=== PATIENT | female | born 1995 | race Caucasian/White ===

== ENCOUNTER 2018-06-08 09:22 | Emergency (ER) | payer BC ==
[2018-06-08 10:21] LABS: Urine Blood NEGATIVE (NEG); Urine Glucose NEGATIVE (NEG); Urine Protein NEGATIVE (NEG); Urine Specific Gravity 1.015 (1.005-1.030); Urine pH 7.5 (5.0-7.0)
[2018-06-08 10:29] LABS: Barbiturates NEGATIVE (NEGATIVE); Benzodiazepines NEGATIVE (NEGATIVE); Cocaine NEGATIVE (NEGATIVE); METHAMPHETAM NEGATIVE (NEGATIVE); Methadone NEGATIVE (NEGATIVE); Opiates NEGATIVE (NEGATIVE); Phencyclidine NEGATIVE (NEGATIVE); THC Cannibis NEGATIVE (NEGATIVE)
[2018-06-08 10:34] LABS: Absolute Lymphocytes (CBC) 2.2 K/uL (0.7-4.9); Absolute Monocytes 0.4 K/uL (0.1-1.3); Absolute Neutrophil 2.5 K/uL (1.8-8.0); Basophils % 0.4 % (0-1.3); Eosinophils % 2.1 % (0-4.4); Hematocrit 38.9 % (36.0-45.0); Lymphocytes % 41.7 % (15.3-44.8); MCH 32.8 pg (27.0-35.0); MCV 93.3 fL (80-100); MPV 9.3 fL (7.6-11.3); Monocytes % 8.5 % (3.3-12.3); RBC Red Blood Cell Count 4.17 M/uL (3.86-4.86)
[2018-06-08 10:38] LABS: Protime INR 1.02
[2018-06-08 10:46] LABS: ALT/SGPT 24 U/L (12-78); AST/SGOT 18 U/L (15-37); Alkaline Phosphatase 41 U/L (45-117); BUN Blood Urea Nitrogen 10 mg/dL (7-18); Bicarbonate 29 mmol/L (21-32); Bilirubin Direct 0.1 mg/dL (0-0.2); Bilirubin Total 0.5 mg/dL (0.2-1.0); Glucose Level 91 mg/dL (74-106); Magnesium 2.1 mg/dL (1.8-2.4); NT PRO-BNP 55 pg/mL (<125); Potassium 3.8 mmol/L (3.5-5.1); Protein, Total 7.4 g/dL (6.4-8.2); Sodium Level 140 mmol/L (136-145)
--- NOTE | 2018-06-08 11:49 | RAD REPORT ---
EXAM DESCRIPTION: RAD - Chest Single View - 06/08/2018 9:49 am CLINICAL HISTORY: CHEST PAIN Chest pain. COMPARISON: No comparisons FINDINGS: Portable technique limits examination quality. The lungs are grossly clear. The heart is normal in size. No displaced fractures. IMPRESSION: No acute intrathoracic process suspected.
--- NOTE | 2018-06-08 12:13 | EDPHYS ---
Physician Documentation [facility] Name: Valeria Gaston Age: 23 yrs Sex: Female : 1995 Arrival Date: 06/08/2018 Time: 09:23 Bed 8 Private MD: Buddy Andre ED Physician Seven Chadwick HPI: 06/08 16:37 This 23 yrs old Female presents to ER via Ambulatory with complaints of Chest kdr Pain. 16:37 The patient or guardian reports chest pain that is located primarily in the anterior kdr chest wall, At the inferior costal margin below nipple. The pain does not radiate. Associated signs and symptoms: The patient has no apparent associated signs or symptoms, Pertinent positives: Hard to get a full breath. Began with mild discomfort then she felt a pop and the pain became much worse.. The chest pain is described as sharp, stabbing. Duration: The patient or guardian reports multiple episodes, that are intermittent, that wax and wane, with no pattern. Modifying factors: The symptoms are alleviated by remaining still, Shallow breathing, holding still. the symptoms are aggravated by breathing, cough, deep breath, movement, twisting torso. Severity of pain: At its worst the pain was moderate severe just prior to arrival, in the emergency department the pain has improved moderately. The patient has experienced similar episodes in the past, The has been ongoing for some time but not as bad or persistent as today.. Historical: - Allergies: 09:34 No Known Allergies; ss - Home Meds: 09:34 vyvanse (currently on hold due to CP symptoms per PCP) [Active]; ss 09:35 control [Active]; ss - PMHx: 09:34 ADD/ADHD; ss - PSHx: 09:34 None; ss - Immunization history:: Adult Immunizations up to date. - Social history:: Smoking status: Patient/guardian denies using tobacco. - Ebola Screening: : Patient denies exposure to infectious person Patient denies travel to an Ebola-affected area in the 21 days before illness onset. ROS: 16:37 Constitutional: Negative for fever, chills, and weight loss, Eyes: Negative for injury, kdr pain, redness, and discharge, ENT: Negative for injury, pain, and discharge, Neck: Negative for injury, pain, and swelling, Respiratory: Negative for shortness of breath, cough, wheezing, and pleuritic chest pain, Abdomen/GI: Negative for abdominal pain, nausea, vomiting, diarrhea, and constipation, Back: Negative for injury and pain, : Negative for injury, bleeding, discharge, and swelling, MS/Extremity: Negative for injury and deformity, Skin: Negative for injury, rash, and discoloration, Neuro: Negative for headache, weakness, numbness, tingling, and seizure activity. Psych: Negative for depression, anxiety, suicide ideation, homicidal ideation, and hallucinations, Allergy/Immunology: Negative for hives, rash, and allergies, Endocrine: Negative for neck swelling, polydipsia, polyuria, polyphagia, and marked weight changes, Hematologic/Lymphatic: Negative for swollen nodes, abnormal bleeding, and unusual bruising. 16:37 Cardiovascular: Positive for chest pain, with cough, with movement, of the left anterior inferior chest pain, Negative for edema, orthopnea, palpitations, paroxysmal nocturnal dyspnea. Exam: 16:37 Constitutional: This is a well developed, well nourished patient who is awake, alert, kdr and in no acute distress. Head/Face: Normocephalic, atraumatic. Eyes: Pupils equal round and reactive to light, extra-ocular motions intact. Lids and lashes normal. Conjunctiva and sclera are non-icteric and not injected. Cornea within normal limits. Periorbital areas with no swelling, redness, or edema. Neck: Trachea midline, no thyromegaly or masses palpated, and no cervical lymphadenopathy. Supple, full range of motion without nuchal rigidity, or vertebral point tenderness. No Meningismus. Cardiovascular: Regular rate and rhythm with a normal S1 and S2. No gallops, murmurs, or rubs. Normal PMI, no JVD. No pulse deficits. Respiratory: Lungs have equal breath sounds bilaterally, clear to auscultation and percussion. No rales, rhonchi or wheezes noted. No increased work of breathing, no retractions or nasal flaring. Abdomen/GI: Soft, non-tender, with normal bowel sounds. No distension or tympany. No guarding or rebound. No evidence of tenderness throughout. Back: No spinal tenderness. No costovertebral tenderness. Full range of motion. Skin: Warm, dry with normal turgor. Normal color with no rashes, no lesions, and no evidence of cellulitis. MS/ Extremity: Pulses equal, no cyanosis. Neurovascular intact. Full, normal range of motion. Neuro: Awake and alert, GCS 15, oriented to person, place, time, and situation. Cranial nerves II-XII grossly intact. Motor strength 5/5 in all extremities. Sensory grossly intact. Cerebellar exam normal. Normal gait. Psych: Awake, alert, with orientation to person, place and time. Behavior, mood, and affect are within normal limits. 16:37 Chest/axilla: Inspection: normal, Palpation: tenderness, that is mild, of the Left anterior inferior/subcostal margin. Vital Signs: 09:34 BP 151 / 89; Pulse 93; Resp 16; Pulse Ox 100% ; Weight 57.15 kg; Height 5 ft. 3 in. ss (160.02 cm); Pain 2/10; 09:45 Temp 98.2(TE); ss 10:19 BP 133 / 98; Pulse 85; Resp 22; Pulse Ox 100% on R/A; ph 11:22 BP 128 / 82; Pulse 69; Resp 18; Pulse Ox 99% on R/A; Pain 0/10; ph 12:30 BP 122 / 78; Pulse 72; Resp 18; Temp 98.0; Pulse Ox 99% on R/A; ph 09:34 Body Mass Index 22.32 (57.15 kg, 160.02 cm) ss MDM: 12:13 Patient medically screened. kdr 16:37 Data reviewed: vital signs, nurses notes, lab test result(s), radiologic studies. kdr Counseling: I had a detailed discussion with the patient and/or guardian regarding: the historical points, exam findings, and any diagnostic results supporting the discharge/admit diagnosis, lab results, radiology results. 06/08 09:32 Order name: Basic Metabolic Panel; Complete Time: 11:37 kdr 06/08 09:32 Order name: CBC with Diff; Complete Time: 11:37 kdr 06/08 09:32 Order name: LFT's; Complete Time: 11:37 kdr 06/08 09:32 Order name: Magnesium; Complete Time: 11:37 kdr 06/08 09:32 Order name: NT PRO-BNP; Complete Time: 11:37 kdr 06/08 09:32 Order name: PT-INR; Complete Time: 11:37 kdr 06/08 09:32 Order name: Ptt, Activated; Complete Time: 11:37 [facility] 06/08 09:32 Order name: Troponin (emerg Dept Use Only); Complete Time: 11:37 [facility] 06/08 09:32 Order name: XRAY Chest (1 view) [facility] 06/08 09:32 Order name: EKG; Complete Time: 09:33 [facility] 06/08 09:32 Order name: Cardiac monitoring; Complete Time: 10:14 [facility] 06/08 09:32 Order name: UDS; Complete Time: 11:37 [facility] 06/08 10:02 Order name: Urine Dipstick--Ancillary (enter results); Complete Time: 11:37 06/08 10:02 Order name: Urine --Ancillary (enter results); Complete Time: 11:37 06/08 09:32 Order name: EKG - Nurse/Tech; Complete Time: 09:38 [facility] 06/08 09:32 Order name: IV Saline Lock; Complete Time: 10:14 [facility] 06/08 09:32 Order name: Labs collected and sent; Complete Time: 10:14 [facility] 06/08 09:32 Order name: O2 Per Protocol; Complete Time: 10:14 [facility] 06/08 09:32 Order name: O2 Sat Monitoring; Complete Time: 10:14 [facility] 06/08 09:32 Order name: Urine Dipstick-Ancillary (obtain specimen); Complete Time: 10:14 kdr Administered Medications: No medications were administered Disposition: 06/08/18 12:13 Discharged to Home. Impression: Chest pain, unspecified. - Condition is Stable. - Discharge Instructions: Chest Wall Pain, [id number], Nonspecific Chest Pain, [id number]. - Prescriptions for Tramadol 50 mg Oral Tablet - take 1 tablet by ORAL route every 8 hours as needed; 12 tablet. Ibuprofen 600 mg Oral Tablet - take 1 tablet by ORAL route every 6 hours As needed take with food; 15 tablet. - Medication Reconciliation Form, Thank You Letter form. - Follow up: Private Physician; When: As needed; Reason: If symptoms return, Further diagnostic work-up, Recheck today's complaints, Continuance of care, Re-evaluation by your physician. - Problem is new. - Symptoms have improved. Signatures: Dispatcher [employer] EDSeven Bowling MD MD kdr Denice Lee, RN RN ss Crystal Villatoro RN RN ph Corrections: (The following items were deleted from the chart) 12:36 12:13 06/08/2018 12:13 Discharged to Home. Impression: Chest pain, unspecified. ph Condition is Stable. Forms are Medication Reconciliation Form, Thank You Letter, Antibiotic Education, Prescription Opioid Use. Follow up: Private Physician; When: As needed; Reason: If symptoms return, Further diagnostic work-up, Recheck today's complaints, Continuance of care, Re-evaluation by your physician. Problem is new. Symptoms have improved. kdr
--- NOTE | 2018-06-08 12:13 | ER ---
Nurse's Notes [facility] Name: Valeria Gaston Age: 23 yrs Sex: Female : 1995 Arrival Date: 06/08/2018 Time: : Bed 8 Private MD: Buddy Andre Diagnosis: Chest pain, unspecified Presentation: 06/08 09:31 Presenting complaint: Patient states: intermittent sharp pain under L breast that is ss worse when taking a deep breath x 1-2 months. Pt reports that her PCP believed that it may be reflux so she took her first dose of antacid yesterday. Pt had the pain today, but when she was on her way to eat breakfast suddenly became weak all over that lasted 30 seconds- 1 minute which made her decide to be evaluated in ER today. Transition of care: patient was not received from another setting of care. Onset of symptoms was June 08, 2018. Risk Assessment: Do you want to hurt yourself or someone else? Patient reports no desire to harm self or others. Initial Sepsis Screen: Does the patient meet any 2 criteria? No. Patient's initial sepsis screen is negative. Does the patient have a suspected source of infection? No. Patient's initial sepsis screen is negative. Care prior to arrival: None. 09:31 Method Of Arrival: Ambulatory ss 09:31 Acuity: JESSIKA 3 ss Triage Assessment: 10:10 General: Appears in no apparent distress. comfortable, Behavior is cooperative, ph appropriate for age, anxious. Pain: Complains of pain in diaphragm, left lateral anterior chest and left breast Quality of pain is described as sharp, Aggravated by repositioning, deep breathing. Neuro: Level of Consciousness is awake, alert, obeys commands, Oriented to person, place, time, situation. Cardiovascular: Reports chest pain, palpitations, shortness of breath, Denies fatigue, nausea, vomiting, Capillary refill < 3 seconds in bilateral fingers Patient's skin is warm and dry. Rhythm is sinus rhythm Chest pain quality is sharp, is located in left anterior chest wall is aggravated by breathing. Respiratory: Reports pain with movement pain with respiration Airway is patent Respiratory effort is even, unlabored, Respiratory pattern is regular, symmetrical, Denies cough. Derm: Skin is intact, is healthy with good turgor, Skin is pink, warm \T\ dry. Musculoskeletal: Circulation, motion, and sensation intact. Range of motion: intact in all extremities. Historical: - Allergies: 09:34 No Known Allergies; ss - Home Meds: 09:34 vyvanse (currently on hold due to CP symptoms per PCP) [Active]; ss 09:35 control [Active]; ss - PMHx: 09:34 ADD/ADHD; ss - PSHx: 09:34 None; ss - Immunization history:: Adult Immunizations up to date. - Social history:: Smoking status: Patient/guardian denies using tobacco. - Ebola Screening: : Patient denies exposure to infectious person Patient denies travel to an Ebola-affected area in the 21 days before illness onset. Screenin:10 Abuse screen: Denies threats or abuse. Denies injuries from another. Nutritional ph screening: No deficits noted. Tuberculosis screening: No symptoms or risk factors identified. Fall Risk None identified. Assessment: 10:17 General: See triage assessment. ph 11:20 Reassessment: Patient appears in no apparent distress at this time. Patient and/or ph family updated on plan of care and expected duration. Pain level reassessed. Patient is alert, oriented x 3, equal unlabored respirations, skin warm/dry/pink. Pt ambulated to restroom, gait steady, denies dizziness, denies pain at this time, awaiting radiology results, family at bedside, VSS. 12:30 Reassessment: Patient appears in no apparent distress at this time. Patient and/or ph family updated on plan of care and expected duration. Pain level reassessed. Patient is alert, oriented x 3, equal unlabored respirations, skin warm/dry/pink. Pt d/c home with family Patient denies pain at this time. Patient states feeling better. Vital Signs: 09:34 BP 151 / 89; Pulse 93; Resp 16; Pulse Ox 100% ; Weight 57.15 kg; Height 5 ft. 3 in. ss (160.02 cm); Pain 2/10; 09:45 Temp 98.2(TE); ss 10:19 BP 133 / 98; Pulse 85; Resp 22; Pulse Ox 100% on R/A; ph 11:22 BP 128 / 82; Pulse 69; Resp 18; Pulse Ox 99% on R/A; Pain 0/10; ph 12:30 BP 122 / 78; Pulse 72; Resp 18; Temp 98.0; Pulse Ox 99% on R/A; ph 09:34 Body Mass Index 22.32 (57.15 kg, 160.02 cm) ss Vitals: 10:19 Cardiac Rhythm Assessment Sinus rhythm. ph ED Course: 09:23 Patient arrived in ED. as 09:23 Buddy Andre MD is Private Physician. as 09:31 Seven Chadwick MD is Attending Physician. kdr 09:33 Triage completed. ss 09:34 Arm band placed on right wrist. ss 09:39 EKG done, by ED staff, reviewed by Seven Chadwick MD. em1 09:44 Crystal Villatoro, RN is Primary Nurse. ph 09:49 XRAY Chest (1 view) In Process Unspecified. EDMS 10:14 Inserted saline lock: 22 gauge in left antecubital area, using aseptic technique. Blood ss collected. Patient maintains SpO2 saturation greater than 95% on room air. 10:18 Patient has correct armband on for positive identification. Placed in gown. Bed in low ph position. Call light in reach. Side rails up X 1. strap stitcher on. Pulse ox on. NIBP on. Warm blanket given. Verbal reassurance given. 12:36 No provider procedures requiring assistance completed. IV discontinued, intact, ph bleeding controlled, No redness/swelling at site. Pressure dressing applied. Administered Medications: No medications were administered Outcome: 12:13 Discharge ordered by . kdr 12:36 Patient left the ED. ph 12:36 Discharged to home ambulatory, with family. ph 12:36 Condition: good 12:36 Discharge instructions given to patient, Instructed on discharge instructions, follow up and referral plans. medication usage, Demonstrated understanding of instructions, follow-up care, medications, Prescriptions given X 2. Signatures: Dispatcher [employer] EDMS Seven Chadwick MD MD kdr Tatum Stephens Eric em1 Denice Lee, EVAN RN Crystal Villatoro, EVAN RN ph
--- NOTE | 2018-06-09 09:34 | EKG ---
Test Date: 2018-06-08 Test Time: 09:32:58 Neck Band Maker: JESSICA MEASUREMENT RESULTS: Intervals: Rate: 91 MI: 126 QRSD: 88 QT: 378 QTc: 464 [place]: P: 78 MI: 126 QRS: 40 T: 40 INTERPRETIVE STATEMENTS: Normal sinus rhythm with sinus arrhythmia Normal ECG No previous ECG available for comparison Electronically Signed On 06-09-18 09:33:38 CDT by Wale Manzano
== END 2018-06-08 12:36 | disposition home or self-care (01) ==
LOC: ER 09:22
DX: R07.9 Chest pain, unspecified (principal); F90.9 Attention-deficit hyperactivity disorder, unspecified type
CPT/HCPCS: 36415; 71045; 80048; 80076; 80307; 81003; 81025; 83735; 83880; 84484; 85025; 85610; 85730; 93005; 99285